=== PATIENT | female | born 1970 | race Caucasian/White ===

== ENCOUNTER 2017-11-19 08:13 | Day surgery (SDC) | payer OTHER ==
[~2017-11-19] VITALS: Ht 175.3 cm; Wt 131.5 kg
[2017-11-19] MEDS ORDERED: DEXAMETHASONE SOD PHOSPHATE 4 MG/ML VIAL ONE (10:10)
[2017-11-19] MEDS ORDERED: CIPROFLOXACIN HCL/DEXAMET 7.5 ML OTIC DROPS.SUSP ONE (10:10)
[2017-11-19] MEDS ORDERED: SEVOFLURANE 15 MIN GAS INH ONE (10:10)
[2017-11-19] MEDS ORDERED: OXYMETAZOLINE HCL 0.05% NASAL SPRAY NS ONE (10:10)
[2017-11-19] MEDS ORDERED: PROPOFOL 200MG/ 20ML VIAL (DIPRIVAN) IV ONE (10:10)
[2017-11-19] MEDS ORDERED: LR 1,000 ML IV.SOLN IV ONE (10:10)
[2017-11-19] MEDS ORDERED: MIDAZOLAM HCL 5 MG/ML VIAL (VERSED) IV ONE (10:10)
[2017-11-19] MEDS ORDERED: METOCLOPRAMIDE HCL 10 MG/2 ML VIAL ONE (10:10)
[2017-11-19] MEDS ORDERED: ONDANSETRON HCL 4 MG/2 ML VIAL ONE (10:10)
[2017-11-19] MEDS ORDERED: fentaNYL CITRATE/PF 100 MCG/2 ML AMP IVP PRN (11:00)
[2017-11-19 11:24] VITALS: BP_SYST 106
== END 2017-11-19 11:20 | disposition home or self-care (01) ==
LOC: SDS 08:13 → STU 08:14 → SMU 09:19 → SDS 11:20
PROVIDERS: ATTEND Otolaryngology
DX: H66.3X1 Other chronic suppurative otitis media, right ear (principal); E66.3 Overweight; E03.9 Hypothyroidism, unspecified; F17.200 Nicotine dependence, unspecified, uncomplicated; Z79.899 Other long term (current) drug therapy; Z98.890 Other specified postprocedural states
CPT/HCPCS: 69436; J7120; L8699; J1100; J2250; J2405; J2704; J2765

== ENCOUNTER 2018-01-17 07:45 | Emergency (ER) | payer OTHER ==
[~2018-01-17] VITALS: Ht 172.7 cm; Wt 136.1 kg
[2018-01-17 07:49] VITALS: BP_SYST 118
[2018-01-17] MEDS ORDERED: NACL 0.9% 1,000 ML IV ONE (08:22)
[2018-01-17] MEDS ORDERED: ONDANSETRON HCL 4 MG/2 ML VIAL IVP ONE (08:30)
[2018-01-17] MEDS ORDERED: MORPHINE 4 MG/ML INJ. SYRINGE IVP ONE ×2 (08:30→09:45)
[2018-01-17] MEDS ORDERED: AMPICILLIN SODIUM/SULBACTAM NA 3 GM in NS 100 ML IV ONE (08:30)
[2018-01-17 08:52] LABS: BILIRUBIN,URINE NEGATIVE (NEGATIVE); BLOOD, URINE 1+ (NEGATIVE); CLARITY/URINE SL HAZY (CLEAR); COLOR,URINE YELLOW (YELLOW); GLUCOSE,URINE NEGATIVE (NEGATIVE); KETONES,URINE NEGATIVE (NEGATIVE); LEUKOCYTE ESTERASE ,URINE NEGATIVE (NEGATIVE); NITRITE, URINE NEGATIVE (NEGATIVE); PROTEIN URINE NEGATIVE (NEGATIVE); UROBILINOGEN,URINE 0.2 (0.2-1.0)
[2018-01-17] MEDS ORDERED: AMPICILLIN SODIUM/SULBACTAM NA 3 GM VIAL ONE (08:53)
[2018-01-17 08:54] LABS: BASOPHILS # (AUTO) 0.1 K/uL (0.0-0.2); BASOPHILS % (AUTO) 0.9 % (0.0-2.0); EOSINOPHILS # (AUTO) 0.3 K/uL (0.0-0.4); EOSINOPHILS % (AUTO) 4.2 % (0.0-4.0); HEMATOCRIT 42.8 % (36-48); HEMOGLOBIN 14.7 g/dL (12.0-16.0); LYMPHOCYTES # (AUTO) 1.6 K/uL (1.0-5.5); LYMPHOCYTES % (AUTO) 23.9 % (20.5-51.5); MEAN CORPUSCULAR HEMOGLOBIN 32 pg (27-31); MEAN CORPUSCULAR HGB CONC 34 % (32-36); MEAN CORPUSCULAR VOLUME 92 fL (79.0-98.0); MONOCYTES # (AUTO) 0.6 K/uL (0.0-1.0); MONOCYTES % (AUTO) 8.7 % (1.7-9.3); NEUTROPHILS # (AUTO) 3.9 K/uL (1.8-7.7); PLATELET COUNT (AUTO) 233 K/uL (130-430); RED BLOOD CELL COUNT(AUTO) 4.63 MIL/uL (4.2-6.2); RED CELL DISTRIBUTION WIDTH 12.6 % (9.0-15.0); WHITE BLOOD COUNT (AUTO) 6.5 K/uL (4.8-10.8)
[2018-01-17 09:00] LABS: CALCIUM 9.1 mg/dL (8.4-11.0); CREATININE 1.08 mg/dL (0.55-1.30); POTASSIUM 3.4 mmol/L (3.5-5.1)
[2018-01-17 09:03] LABS: PROTHROMBIN TIME 10.2 SECS (9.5-12.5)
[2018-01-17 09:06] LABS: ALBUMIN 3.7 g/dL (3.4-4.8); TOTAL BILIRUBIN 0.6 mg/dL (0.0-1.0)
[2018-01-17 09:10] LABS: BACTERIA,URINE RARE /HPF (None Seen); MUCUS,URINE 1+ /LPF (None Seen); WBC,URINE 0-3 /HPF (0-3)
[2018-01-17 09:12] LABS: NEUTROPHILS % (AUTO) 62.3 % (40.0-70.0)
[2018-01-17 10:25] VITALS: BP_SYST 101
== END 2018-01-17 10:25 | disposition home or self-care (01) ==
LOC: SED 07:45
DX: H66.91 Otitis media, unspecified, right ear (principal); R51 Headache; R09.81 Nasal congestion; H11.89 Other specified disorders of conjunctiva; N64.4 Mastodynia; F17.200 Nicotine dependence, unspecified, uncomplicated; Z90.49 Acquired absence of other specified parts of digestive tract; Z91.048 Other nonmedicinal substance allergy status
CPT/HCPCS: 36415; 70450; 80053; 81000; 83605; 85025; 85610; 85730; 87040; 96365; 96375; 96376; 99285; J0295; J2270; J2405; J7030